=== PATIENT | male | born 1985 | race Two or more races ===

== ENCOUNTER 2018-08-20 09:22 | Emergency (ER) | payer OTHER ==
[~2018-08-20] VITALS: Ht 165.1 cm; Wt 74.4 kg
[2018-08-20] MEDS ORDERED: KETO10TA2 PO (13:00)
[2018-08-20] MEDS ORDERED: MUPIROCIN22 GM TOP (13:00)
[2018-08-20] MEDS ORDERED: AMOX1TAB5 PO (13:00)
== END 2018-08-20 13:39 | disposition home or self-care (01) ==
LOC: ER 09:22
DX: M79.604 Pain in right leg (principal)

== ENCOUNTER 2019-04-25 18:57 | Emergency (ER) | payer OTHER ==
[~2019-04-25] VITALS: Ht 162.6 cm; Wt 81.6 kg
[~2019-04-25 18:57] MED LIST: AMOX1TAB5 PO; KETO10TA2 PO; MUPIROCIN22 GM TOP
== END 2019-04-25 20:22 | disposition home or self-care (01) ==
LOC: ER 18:57
DX: S01.421A Laceration with foreign body of right cheek and temporomandibular area, initial encounter (principal); W25.XXXA Contact with sharp glass, initial encounter; Y93.89 Activity, other specified; Y92.89 Other specified places as the place of occurrence of the external cause; Y99.8 Other external cause status

== ENCOUNTER 2019-04-30 19:21 | Emergency (ER) | payer OTHER ==
[~2019-04-30] VITALS: Ht 167.6 cm; Wt 83.9 kg
[2019-04-30] MEDS ORDERED: MEDERMA PM28 GM TOP (22:04)
== END 2019-04-30 22:07 | disposition home or self-care (01) ==
LOC: ER 19:21
DX: Z48.02 Encounter for removal of sutures (principal)

== ENCOUNTER 2019-09-17 18:06 | Emergency (ER) | payer OTHER ==
[~2019-09-17] VITALS: Ht 167.6 cm; Wt 70.3 kg
[~2019-09-17 18:06] MED LIST changes: +MEDERMA PM28 GM TOP
[2019-09-17] MEDS ORDERED: DOLOGEN CAPLET1 EACH PO (22:23)
[2019-09-17] MEDS ORDERED: TUSNEL LIQUID178 ML PO (22:23)
[2019-09-17] MEDS ORDERED: ZITHROMAX500 MG PO (22:23)
== END 2019-09-17 22:52 | disposition home or self-care (01) ==
LOC: ER 18:06
DX: B33.8 Other specified viral diseases (principal); B96.0 Mycoplasma pneumoniae [M. pneumoniae] as the cause of diseases classified elsewhere

== ENCOUNTER 2020-02-13 07:29 | Emergency (ER) | payer OTHER | END 2020-02-13 09:22 | disposition home or self-care (01) | LOC: ER 07:29 | DX: J02.9 Acute pharyngitis, unspecified (principal) ==

== ENCOUNTER 2020-10-29 03:06 | Emergency (ER) | payer OTHER ==
[~2020-10-29] VITALS: Ht 162.6 cm; Wt 77.1 kg
[~2020-10-29 03:06] MED LIST changes: +DOLOGEN CAPLET1 EACH PO; +TUSNEL LIQUID178 ML PO; +ZITHROMAX500 MG PO
== END 2020-10-29 05:22 | disposition home or self-care (01) ==
LOC: ER 03:06
DX: A51.49 Other secondary syphilitic conditions (principal)

== ENCOUNTER 2023-11-22 16:56 | Emergency (ER) | payer OTHER ==
[~2023-11-22] VITALS: Ht 162.6 cm; Wt 77.1 kg
[2023-11-22] MEDS ORDERED: FAMOTIDINE/PF 20 MG in 0.9 % SODIUM CHLORIDE 8 ML IV PUSH STA (18:54)
[2023-11-22] MEDS ORDERED: 0.9 % SODIUM CHLORIDE 1,000 ML IV SCH (19:00)
[2023-11-22] MEDS ORDERED: METRONIDAZOLE/SODIUM CHLORIDE 500 MG/100 ML PIGGYBACK IV ONE (19:00)
[2023-11-22] MEDS ORDERED: ONDANSETRON HCL 2 MG/ML VIAL IV ONE (19:00)
[2023-11-22 19:35] LABS: HEMATOCRIT 43.4 % (39.0-48.0); HEMOGLOBIN 14.8 g/dL (13-16.00); MEAN CORPUSCULAR HEMOGLOBIN 30.3 pg (27.00-32.0); PLATELET COUNT 251 K/uL (150-450); RED BLOOD COUNT 4.88 M/uL (4.00-6.00); RED CELL DISTRIBUTION WIDTH 14.5 % (11.5-14.5)
[2023-11-22 21:21] LABS: BILIRUBIN TOTAL 0.4 mg/dL (0.3-1.2); CALCIUM 7.9 mg/dL (8.5-10.1); CREATININE SERUM 0.91 mg/dL (0.70-1.30); GFR 92.75; GLOBULINA 5.3 G/DL (2.4-3.5); POTASSIUM 3.8 mEq/L (3.5-5.1); TOTAL PROTEIN 9.3 gm/dL (6.4-8.2)
[2023-11-22] MEDS ORDERED: PEPCID AC20 MG PO (22:06)
[2023-11-22] MEDS ORDERED: CIPRO500 MG PO (22:06)
== END 2023-11-22 22:13 | disposition home or self-care (01) ==
LOC: ER 16:57
PROVIDERS: General Practice
DX: R19.7 Diarrhea, unspecified (principal)